=== PATIENT | female | born 1945 | race Caucasian/White ===

== ENCOUNTER 2017-04-09 12:21 | Day surgery (SDC) | payer MEDICARE, MEDICAID ==
[~2017-04-09 12:21] MED LIST: ASPIRIN81 MG PO; CALCIUM1 TA1 PO; CRANBERRY400 MG PO; FENOFIBRATE160 MG PO; GARLIC OIL NATUR1 MG PO; LORTAB ELIXIR473 ML PO; MULTI VITAMINS1 TA1 PO; TAMOXIFEN CITRA20 MG PO
--- NOTE | 2017-04-09 13:38 | Operative Note ---
Upper GI Endoscopy Procedure date: 04/09/17 Date of : 49 Procedure:Upper GI Endoscopy Esophagogastroduodenoscopy with cold biopsies Indications: Mrs. Gomes is a 72-year-old female who is here for diagnostic evaluation of her gnawing epigastric abdominal discomfort and dyspepsia. She often has hunger discomfort. She reports bloating and moderate belching. She has early satiety but rare nausea. She has minor globus sensation with some frequent clearance of the throat. She reports regular bowel function. She has had no weight loss or melena. She has had no prior ultrasound or x-ray. She had a colonoscopy in March 2013 showing a single 4 mm polyp (tubular adenoma 1) which was removed. Performing Provider: Stephon Colon MD Referring Provider: Tobi Etienne M.D. Sedation: Fentanyl 100 mg IV/Versed 5 mg IV Procedure: Prior to the procedure, a history and physical exam was performed, and patients medications and allergies were reviewed. The risks and benefits of the procedure and the sedation options and risks were discussed with the patient. All questions were answered and informed consent was obtained. The patient was brought to the procedure room. Patient identification and proposed procedure were verified by the physician and the nurse. The patient was placed in a left lateral decubitus position and the scope was passed under direct vision. Throughout the procedure, the patient's blood pressure, pulse, and oxygen saturations were monitored continuously. The endoscope was introduced through the mouth, and advanced to the second part of duodenum. The upper GI endoscopy was accomplished without difficulty. The patient tolerated the procedure well. Findings: The scope was passed directly into the upper esophagus and advanced to the third portion of the duodenum. The post bulbar duodenum and duodenal bulb were normal with normal mucosa and conniventes. Cold biopsies were taken from the second portion of the duodenum to rule out celiac disease. The scope was withdrawn through a normal duodenal bulb and pylorus into the stomach. There was chronic gastritis of the body and fundus of the stomach suggestive of H. pylori. Upon retroflexion there was a small 1-2 cm hiatal hernia. 2 biopsies were taken in the antrum and along the lesser curvature for histology and/or CLOtest. The scope was then withdrawn into the esophagus. There was a serrated Z line with 3 short tongues of salmon-colored mucosa that were biopsied to rule out intestinal metaplasia/short segment Culp's esophagus. The remainder of the esophageal mucosa was normal. Immediate complications: None EBL (ml): 0 Impression: 1. Nonerosive gastroesophageal reflux disease with mild esophageal dysmotility and small 1-2 cm hiatal hernia 2. Chronic peptic gastritisrule out H. pylori Recommendations: I will follow-up the biopsies. She does have chronic gastritis suggestive of H. pylori. She also has symptoms of functional dyspepsia. We will discuss additional dietary measures and treatment options. at [id number]
[2017-04-09 14:58] VITALS: BP 123/63
== END 2017-04-09 14:33 | disposition home or self-care (01) ==
LOC: SDC 12:21
PROVIDERS: Internal Medicine Gastroenterology
PROC: 0DB78ZX Excision of Stomach, Pylorus, Via Natural or Artificial Opening Endoscopic, Diagnostic (ICD-10-PCS; 2017-04-09)
PROC: 0DB98ZX Excision of Duodenum, Via Natural or Artificial Opening Endoscopic, Diagnostic (ICD-10-PCS; principal; 2017-04-09 14:30)
DX: K21.9 Gastro-esophageal reflux disease without esophagitis (principal); K44.9 Diaphragmatic hernia without obstruction or gangrene; K22.4 Dyskinesia of esophagus; K29.60 Other gastritis without bleeding

== ENCOUNTER → 2017-10-15 | Outpatient (CLI) | payer MEDICARE, MEDICAID ==
[2017-10-15 14:30] LABS: HEMOGLOBIN 12.3 g/dL (12.2-16.2); LYMPH # 1.7 K/mm3 (0.7-4.5)
[2017-10-15 15:58] LABS: BUN 17 mg/dL (7-18); GFR (ESTIMATED) 83 ML/MIN (59-)
== END ==
LOC: LAB 13:50
PROVIDERS: Nurse Practitioner
DX: C50.912 Malignant neoplasm of unspecified site of left female breast (principal); N63.10 Unspecified lump in the right breast, unspecified quadrant; R53.83 Other fatigue; D64.9 Anemia, unspecified

== ENCOUNTER → 2017-10-16 | Outpatient (CLI) | payer MEDICARE, MEDICAID ==
--- NOTE | 2017-10-24 14:38 | RADIOLOGY REPORT PS360 ---
US BREAST-RT COMPLETE W/AXILLA COMPARISON: 07/12/2017 INDICATION: Follow-up abnormal ultrasound ORDERING PHYSICIAN: Edmar Orozco MD PATIENT AGE: 72 years TECHNIQUE: Standard ultrasound performed of the right breast FINDINGS: At 12:00 there is a stable 1 x 0.5 cm cyst. At 1:00 there is a 5 mm cyst is stable.. At 10:00 there is a hyperechoic area 4 mm with posterior acoustical shadowing likely representing the partially calcified rounded lesion on the mammogram which does have a benign appearance mammographically. Scattered small nodes are present in the axilla. Previously suspected solid nodules in the retroareolar region not identified on today's exam IMPRESSION: Benign findings, no change with no evidence of malignancy BI-RADS CATEGORY: 2_Benign RECOMMENDED FOLLOWUP: Screening mammogram June 2018 (A letter has been sent to the patient regarding results of the study.)
== END ==
LOC: RAD 09:29
DX: N63.10 Unspecified lump in the right breast, unspecified quadrant (principal); B96.81 Helicobacter pylori [H. pylori] as the cause of diseases classified elsewhere